=== PATIENT | female | born 2000 | race Caucasian/White ===

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

== ENCOUNTER 2021-03-10 14:46 | Emergency (ER) | payer BC, SELFPAY ==
[2021-03-10 14:48] VITALS: BP 117/90; PULSE 88; RESP 16; TEMP 37; O2SAT 97
--- NOTE | 2021-03-10 15:00 | DI.US_ITS ---
Exam(s) US PELVIS TRANSVAGINAL EXAM: US PELVIS TRANSVAGINAL CLINICAL HISTORY: bilateral pelvic pain, r/o torsion TECHNIQUE: Ultrasound of the pelvis was performed both transabdominal and transvaginal. COMPARISON: US US OB 1st trimester from 05/01/2019 FINDINGS: UTERUS: Nongravid anteverted Measures 5.5 cm length x 2.8 cm AP x 0.7 cm wide. There are no uterine fibroids. Endometrial thickness measures 12 mm. There is no fluid in the endometrial canal. CERVIX: There are no obvious nabothian cysts. RIGHT OVARY: Measures 1.8 x 1.7 x 1.7 cm No significant cysts nor masses evident in the right ovary. LEFT OVARY: Measures 0.9 x 2.2 x 2.3 cm No significant cysts nor masses evident in the left ovary. Vascular flow is demonstrated in both ovaries CUL-DE-SAC: No free fluid evident. IMPRESSION: 1. Normal appearing uterus and age-appropriate endometrium. 2. No abnormal ovarian findings. 3. No free fluid evident in the adnexal regions and cul-de-sac. DATA REPOSITORY:
--- NOTE | 2021-03-10 15:06 | DI.US_ITS ---
Exam(s) US ABDOMEN LIMITED EXAM: US ABDOMEN LIMITED CLINICAL HISTORY: eval for appe, GB TECHNIQUE: Ultrasound abdomen performed using standard protocol. COMPARISON: No exams were available for comparison FINDINGS: PANCREAS: Normal where visualized. LIVER: Normal. Hepatopedal flow in the Portal Vein. The liver measures 11.6 cm in length. GALLBLADDER: No evidence of cholelithiasis. No evidence of wall thickening. No pericholecystic fluid identified. BILIARY SYSTEM: Common bile duct measures < 7 mm. No intrahepatic biliary ductal dilation. ELMORE'S SIGN: Negative. Right kidney: Right kidney is normal in size. No evidence of renal calculi. No evidence of hydronephr osis. No renal mass or cyst identified. ASCITES: None seen. IMPRESSION: Normal sonographic appearance of the upper abdomen. DATA REPOSITORY:
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
[2021-03-10 15:24] LABS: Bilirubin Negative (Negative); Blood Negative (Negative); Clarity Clear (Clear); Glucose Negative (Negative); Ketones Negative (Negative); Leukocyte Esterase Negative (Negative); Nitrite Negative (Negative); Specific Gravity 1.015 (1.005-1.025); Urobilinogen 0.2 EU/dL (Up TO 0.2)
[2021-03-10] MEDS: Ketorolac 15 MG/ML VIAL IVP (15:28)
[2021-03-10] MEDS: Normal Saline 500 ML IV (15:30)
[2021-03-10 15:33] LABS: Abs Immature Grans 0.01 10^3/uL (0.0-0.06); Absolute Basophil Count 0.04 10^3/uL (0.0-0.2); Absolute Eosinophil Count 0.07 10^3/uL (0.0-0.7); Absolute Lymphocyte Count 2.26 10^3/uL (1.2-3.4); Absolute Monocyte Count 0.45 10^3/uL (0.1-0.8); Basophils % 0.6; Eosinophils % 1.1; HCT 43.9 % (36.0-46.0); HGB 14.8 g/dL (11.2-15.7); Immature Grans % 0.2; Lymphocytes % 34.1; MCH 29.5 pg (27.0-33.0); MCHC 33.7 % (32.0-36.0); MCV 87.5 fL (80-95); MPV 8.4 fL (8.0-11.0); Monocytes % 6.8; Neutrophils % 57.2; Nucleated RBC 0 %; Platelet Count 247 10^3/uL (130-400); RBC 5.02 10^6/uL (3.93-5.22); RDW 12.1 % (11.7-14.6); RDW-SD 38.9 fL; WBC 6.63 10^3/uL (4.4-10.8)
[2021-03-10 15:45] LABS: ALT 260 U/L (14-59); AST 102 U/L (15-37); Albumin 4.3 g/dL (3.4-5.0); Alkaline Phosphatase 83 U/L (46-116); Anion Gap 9.8 mmol/L (3-11); BUN 7 mg/dL (7-18); Bilirubin, Total 0.3 mg/dL (0.2-1.0); CO2 27.2 mmol/L (21.0-32.0); CREATININE 0.7 mg/dL (0.55-1.02); Calcium 8.8 mg/dL (8.5-10.1); Chloride 105 mmol/L (98-107); Glucose 84 mg/dL (74-106); Lipase 91 U/L (73-393); Potassium 3.4 mmol/L (3.5-5.1); Sodium 142 mmol/L (136-145)
[2021-03-10 17:01] VITALS: BP 100/66; PULSE 75; RESP 18; TEMP 36.6; O2SAT 97
[2021-03-12 10:31] LABS: Hepatitis A Antibody IgM Negative (Negative); Hepatitis B Core Antibody Negative (Negative); Hepatitis B surface Ag Negative (Negative); Hepatitis C Ab w Rflx HCV PCR Negative (Negative)
== END 2021-03-10 17:02 | disposition home or self-care (01) ==
PROVIDERS: Emergency Provider Student in an Organized Health Care Education/Training Program; PCP Nurse Practitioner Family
DX: N83.292 Other ovarian cyst, left side (principal); R74.01 Elevation of levels of liver transaminase levels
CPT/HCPCS: 36415; 80053; 81025; 83690; 86704; 86709; 86803; 87340; 96361; 96374; 99284; 76705; 76830; 76856; 81003; 85025; J1885

== ENCOUNTER 2022-01-22 13:23 | Outpatient (CLI) | payer OTHER, SELFPAY ==
[2022-01-22 13:25] LABS: HCG Quant, Pregnancy 8221 mIU/mL (1-3)
== END 2022-01-22 13:24 | disposition home or self-care (01) ==
LOC: LBO 13:26
PROVIDERS: PCP Nurse Practitioner Family; Visit Provider Advanced Practice Midwife
DX: N92.6 Irregular menstruation, unspecified (principal); Z3A.01 Less than 8 weeks gestation of pregnancy
CPT/HCPCS: 36415; 86850; 86900; 86901; 84702

== ENCOUNTER 2022-02-25 16:16 | Outpatient (REF) | payer OTHER, SELFPAY ==
[2022-02-25 22:25] LABS: HCG Beta,Quant Preg 4426 mIU/mL (<5)
== END 2022-02-25 16:17 | disposition home or self-care (01) ==
LOC: LBO 16:16
PROVIDERS: PCP Nurse Practitioner Family; Visit Provider Advanced Practice Midwife
DX: Z34.91 Encounter for supervision of normal pregnancy, unspecified, first trimester (principal)
CPT/HCPCS: 36415; 84702

== ENCOUNTER 2022-02-27 02:02 | Outpatient (CLI) | payer OTHER, SELFPAY ==
[2022-02-27 17:14] LABS: HCG Beta,Quant Preg 2209 mIU/mL (<5)
== END 2022-02-27 02:03 | disposition home or self-care (01) ==
LOC: LBO 02:02
PROVIDERS: PCP Nurse Practitioner Family; Visit Provider Advanced Practice Midwife
DX: O03.9 Complete or unspecified spontaneous abortion without complication (principal)
CPT/HCPCS: 36415; 84702

== ENCOUNTER 2022-03-05 01:38 | Outpatient (CLI) | payer OTHER, SELFPAY ==
[2022-03-05 18:29] LABS: HCG Beta,Quant Preg 435 mIU/mL (<5)
== END 2022-03-05 01:39 | disposition home or self-care (01) ==
LOC: LBO 01:39
PROVIDERS: Advanced Practice Midwife; PCP Nurse Practitioner Family; Visit Provider Advanced Practice Midwife
DX: O03.9 Complete or unspecified spontaneous abortion without complication (principal)
CPT/HCPCS: 36415; 84702

== ENCOUNTER 2024-02-25 17:12 | Outpatient (CLI) | payer OTHER, SELFPAY ==
[2024-02-25 14:00] LABS: Hemoglobin A1C 5.3 % (<5.7)
[2024-02-25 14:36] LABS: ALT 22 U/L (14-59); AST 18 U/L (15-37); Albumin 4.7 g/dL (3.4-5.0); Alkaline Phosphatase 71 U/L (46-116); Anion Gap 10.7 mmol/L (3-11); BUN 8 mg/dL (7-18); CO2 26.3 mmol/L (21.0-32.0); CREATININE 0.8 mg/dL (0.55-1.02); Calcium 9.1 mg/dL (8.5-10.1); Calculated LDL 108 mg/dL (<100); Chloride 101 mmol/L (98-107); Cholesterol 198 mg/dL (<200); Estimated GFR 106.11 (mL/min/1.73m2); Glucose 144 mg/dL (74-106); HDL Cholesterol 83 mg/dL (40-60); Potassium 3.2 mmol/L (3.5-5.1); Sodium 138 mmol/L (136-145); TSH (W/Ref FT4) 1.86 uIU/mL (0.36-3.74); Total Protein 8.4 g/dL (6.4-8.2); Triglyceride 38 mg/dL (<150)
[2024-02-25 23:48] LABS: Estradiol 223 pg/mL (See Note)
[2024-02-28 10:48] LABS: LH 4.9 mIU/mL (See Note); Prolactin 16.3 ng/mL (See Note)
[2024-02-29 14:48] LABS: Estradiol, Mass Spectrometry 215 pg/mL; Estrone 161 pg/mL
[2024-03-01 00:37] LABS: Testosterone, Total 58 ng/dL (8-60)
== END 2024-02-25 17:13 | disposition home or self-care (01) ==
LOC: LBO 17:13
PROVIDERS: PCP Nurse Practitioner Family; Visit Provider Nurse Practitioner Family
DX: F33.9 Major depressive disorder, recurrent, unspecified (principal); F41.1 Generalized anxiety disorder; N93.9 Abnormal uterine and vaginal bleeding, unspecified
CPT/HCPCS: 36415; 80053; 80061; 84403; 82670; 82679; 83001; 83002; 83036; 84146; 84443

== ENCOUNTER 2024-05-08 17:00 | Outpatient (CLI) | payer OTHER, SELFPAY ==
[2024-05-08 17:03] LABS: Abs Immature Grans 0.01 10^3/uL (0.0-0.06); Absolute Basophil Count 0.04 10^3/uL (0.0-0.2); Absolute Eosinophil Count 0.07 10^3/uL (0.0-0.7); Absolute Monocyte Count 0.38 10^3/uL (0.1-0.8); Absolute Neutrophil Count 2.77 10^3/uL (1.2-6.7); Basophils % 0.7 %; Eosinophils % 1.2 %; HCT 42.9 % (36.0-46.0); HGB 14.2 g/dL (11.2-15.7); Immature Grans % 0.2 %; Lymphocytes % 46.1 %; MCHC 33.1 % (32.0-36.0); MCV 91 fL (80-95); MPV 8.4 fL (8.0-11.0); Monocytes % 6.3 %; Neutrophils % 45.5 %; Platelet Count 266 10^3/uL (130-400); RBC 4.73 10^6/uL (3.93-5.22); RDW 12.3 % (11.7-14.6); RDW-SD 40.6 fL; WBC 6.07 10^3/uL (4.4-10.8)
[2024-05-08 17:30] LABS: Ferritin 31 ng/mL (8-252)
== END 2024-05-08 17:01 | disposition home or self-care (01) ==
LOC: LBO 17:01
PROVIDERS: PCP Nurse Practitioner Family; Visit Provider Nurse Practitioner Family
DX: N93.9 Abnormal uterine and vaginal bleeding, unspecified (principal); R10.2 Pelvic and perineal pain; N64.4 Mastodynia
CPT/HCPCS: 36415; 82728; 85025

== ENCOUNTER 2024-05-26 12:57 | Outpatient (REF) | payer OTHER, SELFPAY ==
--- NOTE | 2024-05-26 09:00 | PAPFT_PTH ---
PATIENT: Kristina Antonio LOC: [facility] U#:[id number] AGE/SX: 23/F ROOM: RE05/26/[address]: Cynthia Galo NP : 2000 BED: DIS: 05/26/2024 SPEC #: [id number] RECD: 05/26/24 13:02 STATUS: NATALIO WINSTON #: [id number] NASIR: 05/26/24 09:[address]: Cynthia Galo DEPT: [facility] Cytology RECD BY: Laverne Abraham ENTERED: 05/26/24 13:04 SP TYPE: PAPFT LUCIAN DR: SONYA GilmanP Tissues: 1 - CX/ENDOCX FOR PAP SMEARS Procedures: PAP THIN PREP/UVM Screening Comments: [id number]
== END 2024-05-26 12:58 | disposition home or self-care (01) ==
LOC: LBN 12:57
PROVIDERS: PCP Nurse Practitioner Family; Visit Provider Nurse Practitioner Family
DX: Z12.4 Encounter for screening for malignant neoplasm of cervix (principal)
CPT/HCPCS: 88142

== ENCOUNTER 2024-08-17 11:11 | Outpatient (CLI) | payer OTHER, SELFPAY ==
[2024-08-17 09:56] LABS: HCG Quant, Pregnancy 1 mIU/mL (1-3)
== END 2024-08-17 11:12 | disposition home or self-care (01) ==
LOC: LBO 11:12
PROVIDERS: PCP Nurse Practitioner Family; Visit Provider Obstetrics & Gynecology
DX: N91.0 Primary amenorrhea (principal); R10.2 Pelvic and perineal pain
CPT/HCPCS: 36415; 84702

== ENCOUNTER 2025-01-12 12:56 | Outpatient (CLI) | payer OTHER, SELFPAY ==
[2025-01-12 13:54] LABS: HCG Quant, Pregnancy 6 mIU/mL (1-3)
== END 2025-01-12 12:57 | disposition home or self-care (01) ==
LOC: LBO 12:56
PROVIDERS: PCP Nurse Practitioner Family; Visit Provider Obstetrics & Gynecology
DX: Z87.59 Personal history of other complications of pregnancy, childbirth and the puerperium (principal)
CPT/HCPCS: 36415; 84702

== ENCOUNTER 2025-01-15 10:16 | Outpatient (CLI) | payer OTHER, SELFPAY ==
[2025-01-15 08:23] LABS: HCG Quant, Pregnancy 75 mIU/mL (1-3)
== END 2025-01-15 10:17 | disposition home or self-care (01) ==
LOC: LBO 10:16
PROVIDERS: PCP Nurse Practitioner Family; Visit Provider Obstetrics & Gynecology
DX: Z87.59 Personal history of other complications of pregnancy, childbirth and the puerperium (principal)
CPT/HCPCS: 36415; 84702

== ENCOUNTER 2025-01-17 16:50 | Outpatient (CLI) | payer OTHER, SELFPAY ==
[2025-01-17 18:21] LABS: HCG Quant, Pregnancy 161 mIU/mL (1-3)
== END 2025-01-17 16:51 | disposition home or self-care (01) ==
LOC: LBO 16:51
PROVIDERS: PCP Nurse Practitioner Family; Visit Provider Obstetrics & Gynecology
DX: O26.851 Spotting complicating pregnancy, first trimester (principal)
CPT/HCPCS: 36415; 84702

== ENCOUNTER 2025-02-17 09:52 | Outpatient (CLI) | payer OTHER, SELFPAY ==
[2025-02-17 11:26] LABS: HCG Quant, Pregnancy 45165 mIU/mL (1-3)
== END 2025-02-17 09:53 | disposition home or self-care (01) ==
PROVIDERS: PCP Nurse Practitioner Family; Visit Provider Advanced Practice Midwife
DX: O20.9 Hemorrhage in early pregnancy, unspecified (principal)
CPT/HCPCS: 84702

== ENCOUNTER 2025-02-28 09:54 | Outpatient (CLI) | payer OTHER, SELFPAY ==
[2025-02-28 10:04] LABS: HCT 41.4 % (36.0-46.0); HGB 13.8 g/dL (11.2-15.7); MCH 29.4 pg (27.0-33.0); MCHC 33.3 % (32.0-36.0); MCV 88 fL (80-95); MPV 8.5 fL (8.0-11.0); Platelet Count 242 10^3/uL (130-400); RBC 4.70 10^6/uL (3.93-5.22); RDW 11.9 % (11.7-14.6); RDW-SD 38.5 fL; WBC 4.96 10^3/uL (4.4-10.8)
[2025-02-28 10:52] LABS: HCG Quant, Pregnancy 833 mIU/mL (1-3)
== END 2025-02-28 09:55 | disposition home or self-care (01) ==
LOC: LBO 09:55
PROVIDERS: PCP Nurse Practitioner Family; Visit Provider Obstetrics & Gynecology
DX: O03.9 Complete or unspecified spontaneous abortion without complication (principal)
CPT/HCPCS: 36415; 85027; 84702

== ENCOUNTER 2025-03-14 13:32 | Outpatient (CLI) | payer OTHER, SELFPAY ==
[2025-03-14 13:42] LABS: HCG Quant, Pregnancy 28 mIU/mL (1-3)
== END 2025-03-14 13:33 | disposition home or self-care (01) ==
LOC: LBO 13:33
PROVIDERS: PCP Nurse Practitioner Family; Visit Provider Obstetrics & Gynecology
DX: O26.851 Spotting complicating pregnancy, first trimester (principal)
CPT/HCPCS: 36415; 84702

== ENCOUNTER 2025-04-11 02:27 | Outpatient (CLI) | payer OTHER, SELFPAY ==
[2025-04-11 12:45] LABS: Abs Immature Grans 0.01 10^3/uL (0.0-0.06); HCT 40.9 % (36.0-46.0); HGB 14.0 g/dL (11.2-15.7); Immature Grans % 0.2 %; MCH 29.9 pg (27.0-33.0); MCHC 34.2 % (32.0-36.0); MCV 87 fL (80-95); MPV 8.6 fL (8.0-11.0); Platelet Count 257 10^3/uL (130-400); RBC 4.68 10^6/uL (3.93-5.22); RDW 12.2 % (11.7-14.6); RDW-SD 39.6 fL; WBC 6.48 10^3/uL (4.4-10.8)
[2025-04-11 13:40] LABS: HCG Quant, Pregnancy 3 mIU/mL (1-3); TSH (W/Ref FT4) 2.56 uIU/mL (0.36-3.74)
[2025-04-13 13:37] LABS: Activated Partial Thrombo Time 31 sec (25 - 37); INR 1.0 (0.9-1.1)
== END 2025-04-11 02:28 | disposition home or self-care (01) ==
LOC: LBO 02:27
PROVIDERS: PCP Nurse Practitioner Family; Visit Provider Obstetrics & Gynecology
DX: O26.899 Other specified pregnancy related conditions, unspecified trimester (principal); Z67.91 Unspecified blood type, Rh negative; N96 Recurrent pregnancy loss; O03.9 Complete or unspecified spontaneous abortion without complication
CPT/HCPCS: 36415; 85390; 85610; 85613; 85730; 86147; 86850; 86900; 86901; 84443; 84702; 85025

== ENCOUNTER 2025-04-17 16:17 | Emergency (ER) | payer OTHER, SELFPAY ==
[2025-04-17 16:46] VITALS: BP 128/84; PULSE 83; RESP 16; TEMP 36; O2SAT 98
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
[2025-04-17 16:56] LABS: Abs Immature Grans 0.01 10^3/uL (0.0-0.06); HCT 40.8 % (36.0-46.0); HGB 13.9 g/dL (11.2-15.7); Immature Grans % 0.2 %; MCH 29.6 pg (27.0-33.0); MCHC 34.1 % (32.0-36.0); MCV 87 fL (80-95); MPV 8.7 fL (8.0-11.0); Platelet Count 244 10^3/uL (130-400); RBC 4.69 10^6/uL (3.93-5.22); RDW 12.1 % (11.7-14.6); RDW-SD 38.6 fL; WBC 6.45 10^3/uL (4.4-10.8)
[2025-04-17 17:20] LABS: INR 1.0 (0.9-1.1); PTT Activated 25.0 sec (20.6-30.2); Prothrombin Time 10.3 sec (9.1-11.1)
[2025-04-17 17:20] LABS: ALT 20 U/L (14-59); AST 17 U/L (15-37); Albumin 4.3 g/dL (3.4-5.0); Alkaline Phosphatase 67 U/L (46-116); Anion Gap 9.9 mmol/L (3-11); BUN 8 mg/dL (7-18); Bilirubin, Total 0.4 mg/dL (0.2-1.0); CO2 27.1 mmol/L (21.0-32.0); Calcium 8.8 mg/dL (8.5-10.1); Chloride 104 mmol/L (98-107); Estimated GFR 123.78 (mL/min/1.73m2); Glucose 91 mg/dL (74-106); HCG Quant, Pregnancy 2 mIU/mL (1-3); Magnesium 1.9 mg/dL (1.8-2.4); Potassium 3.4 mmol/L (3.5-5.1); Sodium 141 mmol/L (136-145); Total Protein 7.6 g/dL (6.4-8.2)
[2025-04-17] MEDS: Tranexamic Acid 650 MG TAB 1300 MG PO (18:05)
[2025-04-17 18:20] VITALS: BP 95/74; PULSE 74; RESP 14; TEMP 37; O2SAT 100
== END 2025-04-17 18:24 | disposition home or self-care (01) ==
PROVIDERS: Emergency Provider Emergency Medicine; PCP Nurse Practitioner Family
DX: N93.9 Abnormal uterine and vaginal bleeding, unspecified (principal)
CPT/HCPCS: 99283 ×2; 80053; 86850; 86900; 86901; 83735; 84702; 85025; 85610; 85730